=== PATIENT | male | born 1980 | race Caucasian/White ===

== ENCOUNTER 2019-09-12 13:12 | Emergency (ER) | payer OTHER ==
[2019-09-12 13:22] VITALS: TEMP 98
[2019-09-12] MEDS ORDERED: HYDROmorphone 1 MG/ML 1 ML SYRINGE IVP STA (13:25)
[2019-09-12] MEDS ORDERED: ETOMIDATE 2 MG/ML 10 ML VIAL IVP STA (13:40)
--- NOTE | 2019-09-12 13:44 | ED ---
General Adult HPI - General Chief complaint: Extremity Injury, Upper Stated complaint: shoulder injury-[facility] Time Seen by Provider: 09/12/19 13:13 Source: patient, EMS, old records reviewed (Reviewed x-rays from urgent care showing anterior shoulder dislocation of the right. Also reviewed chart.) Mode of arrival: EMS Limitations: no limitations - History of Present Illness Initial comments: Patient is a pleasant 39-year-old male presenting to the emergency Department with right shoulder discomfort. Onset of symptoms was prior to arrival at work. Patient slipped and fell on ice. Patient did extend his right arm and had sudden discomfort right shoulder when he landed. Patient did go to urgent care and diagnosed with shoulder dislocation on the right. Patient states discomfort is fairly severe at this time. No other injury. No head injury or loss of consciousness. Patient does have history of similar symptoms previously with his left shoulder. Review of Systems ROS Statement: Those systems with pertinent positive or pertinent negative responses have been documented in the HPI. ROS Other: All systems not noted in ROS Statement are negative. Constitutional: Denies: fever Eyes: Denies: eye pain ENT: Denies: ear pain Respiratory: Denies: cough Cardiovascular: Denies: chest pain Endocrine: Denies: fatigue Gastrointestinal: Denies: abdominal pain Genitourinary: Denies: dysuria Musculoskeletal: Reports: as per HPI. Denies: back pain Skin: Denies: rash Neurological: Denies: weakness Past Medical History Past Medical History: No Reported History History of Any Multi-Drug Resistant Organisms: None Reported Past Surgical History: No Surgical Hx Reported Smoking Status: Current every day smoker Past Alcohol Use History: Occasional Past Drug Use History: None Reported General Exam Limitations: no limitations General appearance: alert, in no apparent distress Head exam: Present: normocephalic Eye exam: Present: normal appearance Neck exam: Present: normal inspection. Absent: tenderness Respiratory exam: Present: normal lung sounds bilaterally Cardiovascular Exam: Present: regular rate, normal rhythm Expanded Peripheral pulses: 2+: Radial (R) GI/Abdominal exam: Present: soft. Absent: tenderness Extremities exam: Present: other (Shoulder with anterior fullness. Limited range of motion secondary to discomfort. Distally the extremity is neurovas cular intact. Good composition weatherboard applier strength. Good sensation. Cap refill less than 2 seconds. Radial pulse intact.) Back exam: Present: normal inspection. Absent: tenderness Neurological exam: Present: alert. Absent: motor sensory deficit Psychiatric exam: Present: normal affect, normal mood Skin exam: Present: normal color Course Vital Signs 09/12/19 09/12/19 09/12/19 13:14 13:55 14:00 Temperature 98.0 F Pulse Rate 79 74 71 Respiratory 16 22 16 Rate Blood Pressure 181/99 181/99 150/85 O2 Sat by Pulse 98 98 100 Oximetry 09/12/19 09/12/19 09/12/19 14:05 14:10 14:15 Temperature Pulse Rate 56 L 61 64 Respiratory 16 16 16 Rate Blood Pressure 150/85 160/101 166/99 O2 Sat by Pulse 99 100 99 Oximetry 09/12/19 14:20 Temperature Pulse Rate 60 Respiratory 16 Rate Blood Pressure 167/109 O2 Sat by Pulse 99 Oximetry Procedures - Orthopedic Joint Reduction Joint #1 Consent Obtained: verbal consent, written consent Side: right Joint Reduction Location: shoulder Analgesia: procedural sedation Shoulder Technique Used (if applicable): traction/counter-traction Technique Used: traction/counter-traction Post-Reduction Neuro Exam: intact Post-Reduction Vascular Exam: intact Post Reduction X-Ray Obtained: Yes Post Reduction X-Ray Results: reduced Patient Tolerated Procedure: well, no complications - Procedural Sedation Procedural Sedation Start Time: 13:55 Procedural Sedation Stop Time: 14:16 Indications: fracture/dislocation reduction ASA Class: I Mallampati Airway Score: 2 Preparation: engine monitor applied, pulse oximeter, supplemental O2 applied IV Etomidate Dose (mgs): 36 Complications: none Patient Tolerated Procedure: well, no complications Medical Decision Making - Medical Decision Making Patient reevaluated, alert and appropriate. Patient updated. - Radiology Data Radiology results: image reviewed (Postreduction right shoulder shows good alignment. No fracture.) Disposition Clinical Impression: Dislocation of shoulder region Disposition: HOME SELF-CARE Condition: Stable Instructions (If sedation given, give patient instructions): Moderate Sedation (ED), Shoulder Dislocation (ED) Additional Instructions: Please follow-up with [facility] services and orthopedic surgery in the next couple days for recheck. No use of right shoulder and released by [id number] Motrin. Ice to affected area. Continue to use sling. Is patient prescribed a controlled substance at d/c from ED?: No Referrals: Shellie Hensley MD [Primary Care Provider] - 1-2 days Koko Aguilar MD [STAFF PHYSICIAN] - 1-2 days Time of Disposition: 14:39
[2019-09-12 14:10] VITALS: RESP 16
--- NOTE | 2019-09-12 14:29 | XR ---
EXAMINATION TYPE: XR shoulder limited RT DATE OF EXAM: 09/12/2019 CLINICAL HISTORY: Post reduction image of the right shoulder TECHNIQUE: Single frontal view of the right shoulder are obtained. COMPARISON: None. FINDINGS: There is no acute fracture/dislocation evident in the right shoulder on this single view o nly. The acromioclavicular and glenohumeral joint spaces appear within normal limits. The visualize d ribs are intact and unremarkable. IMPRESSION: There is no acute fracture or dislocation in the right shoulder on the single frontal vi ew only.
[2019-09-12] MEDS ORDERED: ACET/COD 300 MG/30 MG STARTER PACK 6 TAB BTL PO STA (14:50)
[2019-09-12 15:09] VITALS: BP 139/98; PULSE 76
== END 2019-09-12 13:50 | disposition home or self-care (01) ==
LOC: EC 13:12
DX: S43.004A Unspecified dislocation of right shoulder joint, initial encounter (principal); F17.200 Nicotine dependence, unspecified, uncomplicated; W00.0XXA Fall on same level due to ice and snow, initial encounter; Y92.89 Other specified places as the place of occurrence of the external cause; Y99.0 Civilian activity done for income or pay
CPT/HCPCS: 99284; 23650; 99152; 96374; 73020; J1170